=== PATIENT | male | born 2000 | race African-American/Black ===

== ENCOUNTER 2024-06-15 20:35 | Emergency (ER) | payer OTHER ==
[2024-06-15 21:23] LABS: BILIRUBIN,URINE NEGATIVE (NEGATIVE); GLUCOSE, URINE (UA) NEGATIVE (NEGATIVE); KETONES,URINE (UA) NEGATIVE (NEGATIVE); LEUKOCYTE ESTERASE, URINE NEGATIVE (NEGATIVE); NITRITE,URINE NEGATIVE (NEGATIVE); OCCULT BLOOD,URINE NEGATIVE (NEGATIVE); PH,URINE 6.5 PH (5.0-7.5); PROTEIN,URINE NEGATIVE (NEGATIVE); UROBILINOGEN,URINE 1 (NORMAL) E.U./dL (NORMAL)
[2024-06-15 21:26] LABS: CLARITY,URINE CLEAR (CLEAR)
[2024-06-15 21:38] LABS: BASOPHILS # (AUTO) 0.1 10^3/uL (0.0-0.1); BASOPHILS % (AUTO) 0.6 %; EOSINOPHILS # (AUTO) 0.1 10^3/uL (0.0-0.7); EOSINOPHILS % (AUTO) 0.7 %; HCT - HEMATOCRIT 44.7 % (42.0-52.0); HGB - HEMOGLOBIN 15.9 g/dL (14.0-18.0); LYMPHOCYTES # (AUTO) 2.3 10^3/uL (1.5-3.5); LYMPHOCYTES % (AUTO) 21.9 %; MEAN CORPUSCULAR HEMOGLOBIN 29.1 pg (27.0-31.0); MEAN CORPUSCULAR HGB CONC 35.6 g/dL (32.0-36.0); MEAN CORPUSCULAR VOLUME 81.7 fL (80.0-94.0); MEAN PLATELET VOLUME 10.2 fL (7.4-11.4); MONOCYTES # (AUTO) 0.6 10^3/uL (0.0-1.0); MONOCYTES % (AUTO) 6.1 %; NEUTROPHILS # (AUTO) 7.4 10^3/uL (1.5-6.6); NEUTROPHILS % (AUTO) 70.4 %; PLT - PLATELET COUNT 344 10^3/uL (130-450); RED BLOOD COUNT 5.47 10^6/uL (4.70-6.10); RED CELL DISTRIBUTION WIDTH 11.8 % (12.0-15.0); WHITE BLOOD COUNT 10.5 x10^3/uL (4.8-10.8)
[2024-06-15 21:56] LABS: ALBUMIN 4.3 g/dL (3.2-5.5); ALBUMIN/GLOBULIN RATIO 1.4 (1.0-2.2); BILIRUBIN,TOTAL 0.7 mg/dL (0.2-1.0); CALCIUM 9.5 mg/dL (8.5-10.3); CREATININE 0.7 mg/dL (0.6-1.3); POTASSIUM 3.5 mmol/L (3.5-4.5); TOTAL PROTEIN 7.3 g/dL (6.4-8.9)
--- NOTE | 2024-06-15 22:02 | ED Physician Documentation ---
History of Present Illness - Stated complaint Stated Complaint: ABD PX - Chief complaint Chief Complaint: Abd Pain - Additonal information Additional information: Patient is a 23-year-old male no significant past medical history reports to the emergency department with groin pain and lower abdominal pain. Symptoms started a few hours prior to arrival. He notes similar symptoms lasted for about 3 hours on Monday but completely resolved when he returned home. Patient denies any fevers no chills no nausea or vomiting. He has been eating and drinking normally at home. No history of abdominal surgeries. No history of nephro or urolithiasis. He denies any pain with urination no changes in color of his urine. He did not take anything for pain prior to coming to the emergency department. PD PAST MEDICAL HISTORY - Past Medical History Past Medical History: No - Past Surgical History Past Surgical History: No - Present Medications Home Medications: Ambulatory Orders Medication Instructions Recorded Confirmed No Known Home Medications 06/15/24 06/15/24 - Allergies Allergies/Adverse Reactions: Allergies Allergy/AdvReac Type Severity Reaction Status Date / Time No Known Drug Allergies Allergy Verified 06/15/24 21:10 - Social History Does the pt smoke?: No Smoking Status: Never smoker Does the pt drink ETOH?: No Does the pt have substance abuse?: No - Immunizations Immunizations are current?: Yes - POLST Patient has POLST: No PD ED PE NORMAL - Vitals Vital signs reviewed: Yes - General General: Alert and oriented X 3 - HEENT HEENT: Atraumatic - Neck Neck: Supple, no meningeal sign - Cardiac Cardiac: RRR, No murmur, No gallop - Respiratory Respiratory: No respiratory distress - Abdomen Abdomen: Normal bowel sounds, Other (Diffuse abdominal guarding in upper and lower abdomen. Significant tenderness on palpation of lower abdomen bilaterally no CVA tenderness. No palpable hernia. No rebound negative Rovsing sign.) - Male Male : Welfare Service Aide present, Other (Left side testicle slightly larger compared to right cremasteric reflex intact bilaterally. No significant erythema appreciated significant tenderness on light touch of left testicle. Negative Prehn's sign) - Rectal Rectal: Pt declined - Back Back: No CVA TTP Results - Vitals Vitals: Vital Signs - 24 hr 06/15/24 06/15/24 20:53 21:27 Temperature 36.0 C L Heart Rate 73 71 Respiratory 16 Rate Blood Pressure 137/83 H O2 Saturation 99 Oxygen O2 Source Room air - Labs Labs: Laboratory Tests 06/15/24 06/15/24 06/15/24 21:05 21:34 21:34 WBC 10.5 RBC 5.47 Hgb 15.9 Hct 44.7 MCV 81.7 MCH 29.1 MCHC 35.6 RDW 11.8 L Plt Count 344 MPV 10.2 Neut # (Auto) 7.4 H Lymph # (Auto) 2.3 [place] # (Auto) 0.6 Eos # (Auto) 0.1 Baso # (Auto) 0.1 Absolute Nucleated RBC 0.00 Nucleated RBC % 0.0 Sodium 138 Potassium 3.5 Chloride 104 Carbon Dioxide 27 Anion Gap 7.0 BUN 11 Creatinine 0.7 Estimated GFR (MDRD) 173 Glucose 98 Calcium 9.5 Total Bilirubin 0.7 AST 14 ALT 28 Alkaline Phosphatase 73 Total Protein 7.3 Albumin 4.3 Globulin 3.0 Albumin/Globulin Ratio 1.4 Urine Color YELLOW Urine Clarity CLEAR Urine pH 6.5 Ur Specific [place] 1.025 Urine Protein NEGATIVE Urine Glucose (UA) NEGATIVE Urine Ketones NEGATIVE Urine Occult Blood NEGATIVE Urine Nitrite NEGATIVE Urine Bilirubin NEGATIVE Urine Urobilinogen 1 (NORMAL) Ur Leukocyte Esterase NEGATIVE Ur Microscopic Review NOT INDICATED Urine Culture Comments NOT INDICATED PD Medical Decision Making - ED course Complexity details: reviewed old records, reviewed results, re-evaluated patient ED course: Patient is a 23-year-old male presenting to the emergency department with abdominal pain and groin pain. Patient's symptoms started few hours prior to arrival he denies any nausea or vomiting with his symptoms he notes no difficulty urinating no changes in color. No history of abdominal surgeries. Vital stable on arrival are reassuring. Physical exam shows diffuse abdominal tenderness with guarding on physical exam no CVA tenderness. Testicular exam shows left greater than right testicle but no significant erythema negative Prehn sign cremasteric reflex intact. Given physical exam findings ultrasound testicles ordered but showed no acute signs of torsion. Slightly right greater than left vascularity but no significant swelling or hydrocele appreciated. Patient's pain still 10 out of 10 after Toradol small dose of morphine given here in the emergency department Patient given CT scan with IV contrast to further evaluate symptoms concern for possible kidney stone versus appendicitis. Patient following up with Dr. Sheets here in the emergency department. Departure - Departure Forms: PCP List
[2024-06-15] MEDS: KETOROLAC 15 MG/ML VIAL IVP STA (22:11)
[2024-06-15] MEDS ORDERED: iohexoL-300 100 ML VIAL ONE (22:15)
[2024-06-15] MEDS: iohexoL-300 100 ML VIAL IVP ONE (22:45)
--- NOTE | 2024-06-15 22:49 | Ultrasound Report ---
PROCEDURE: Testicle w/Doppler INDICATIONS: severe pain TECHNIQUE: Real-time scanning was performed of the scrotum and testicles, with image documentation. Color and p ulse Doppler interrogation was performed of both testicles. COMPARISON: None. FINDINGS: Right: Testicle is normal in size at 2.3 x 3.2 x 3.7 cm, and homogenous in echotexture. Epididymis is normal in overall size and morphology. 1.2 x 1.0 cm right hydrocele. Small right varicocele. Ove rlying scrotal skin is normal in thickness. Left: Testicle is normal in size at 2.2 x 3.2 x 3.3 cm, and homogeneous in echotexture. Epididymis is normal in overall size and morphology. 1.5 x 0.9 cm left hydrocele. No varicoceles. Overlying sc rotal skin is normal in thickness. Doppler: Color and pulse Doppler demonstrate normal and symmetric arterial flow in both testicles. IMPRESSION: Small bilateral hydroceles, small right-sided varicocele, no evidence of testicular torsion or mass. Reviewed by: Andrea Morales MD on 06/15/2024 10:48 PM PDT Approved by: Andrea Morales MD on 06/15/2024 10:48 PM PDT Station ID: [id number]
[2024-06-15 23:09] VITALS: O2SAT 98
--- NOTE | 2024-06-15 23:32 | CT Report ---
PROCEDURE: Abdomen/Pelvis W INDICATIONS: left lower quadrant pain CONTRAST: Intravenous nonionic contrast, no oral contrast, 100 ML OMNI 300 TECHNIQUE: After the administration of intravenous contrast, a CT scan of the abdomen and pelvis was performed. Images were recorded and evaluated at appropriate window settings. Reformats: coronal and sagittal. F or radiation dose reduction, the following was used: automated exposure control, adjustment of mA and /or kV according to patient size. COMPARISON: None. FINDINGS: Image quality: Diagnostic. Lower chest: Unremarkable. Liver: No solid mass. Gallbladder: The gallbladder appears contracted. Biliary tree: No intrahepatic or extrahepatic dilation, accounting for age. Spleen: No splenomegaly. Pancreas: No pancreatic ductal dilation. Adrenals: No adrenal nodule. Kidneys and ureters: No hydronephrosis. No renal cystic lesion which requires follow up. No solid mas s. Stomach, bowel and peritoneum: No gastric or small bowel dilation. No abnormal wall thickening. No pa thologic free fluid. Lymph nodes: No central or retroperitoneal adenopathy. Vessels: No infrarenal aortic aneurysm. Patent portal vein. PELVIS Reproductive organs: Unremarkable. Bladder: No abnormal wall thickening, accounting for underdistention. Pelvic lymph nodes: No pelvic adenopathy by size criteria. Bones: No aggressive osseous abnormality. Other: No significant ventral or inguinal hernia. A normal or abnormal appendix could not be found. IMPRESSION: Etiology of current symptoms is not identified. The study appears normal for age. No urinary tract ab normality is seen, no inguinal hernia is identified. A normal or abnormal appendix could not be locat ed but there is no secondary CT evidence of acute appendicitis. Reviewed by: Andrea Morales MD on 06/15/2024 11:31 PM PDT Approved by: Andrea Morales MD on 06/15/2024 11:31 PM PDT Station ID: [id number]
[2024-06-15] MEDS: MORPHINE 2 MG/ML CARPUJECT IVP STA (23:56)
--- NOTE | 2024-06-16 00:06 | ED Physician Documentation ---
ED Addendum - Addendum Addendum: 06/16/24 00:05 Care of patient signed out to myself. Independent review of patient and chart performed. Ultrasound shows small bilateral hydroceles, small right sided varicocele. No evidence of torsion or mass. Urinalysis negative for signs of infection. CT of the abdomen and pelvis did not visually identify the appendix, however there were no secondary inflammatory signs of appendicitis. With normal laboratory work, reassuring abdominal exam, and patient identifying the pain to be in his testicles appendicitis is felt to be less likely. Patient counseled to wear supportive underwear, to use ice and elevation as needed for pain. A referral number to urology provided. Patient counseled on the importance of NSAIDs and other [id number] pain medication use.
[2024-06-16 00:24] VITALS: BP 125/71
== END 2024-06-16 00:13 | disposition home or self-care (01) ==
LOC: ED 20:35
DX: R10.31 Right lower quadrant pain (principal); R10.32 Left lower quadrant pain; N43.3 Hydrocele, unspecified; I86.1 Scrotal varices
CPT/HCPCS: 36415; 74177; 76870; 80053; 81003; 85025; 93975; 96374; 99284; Q9967; 81001; 87086